=== PATIENT | female | born 1975 | race Caucasian/White ===

== ENCOUNTER → 2021-07-14 09:04 | Outpatient (CLI) | payer OTHER, SELFPAY ==
[2021-07-14 19:59] LABS: Free T4, Direct Thyroxine 0.72 ng/dL (0.78-2.19)
[2021-07-14 20:17] LABS: Free T3, Triiodothyronine Free 2.46 pg/mL (2.77-5.27)
[2021-07-19 01:02] LABS: Anti Thyroglobulin Antibody <1.0 IU/mL (0.0-0.9); Thyroid Peroxidase Antibodies <8 IU/mL (0-34)
== END ==
PROVIDERS: PCP Physician Assistant Medical; Visit Provider Physician Assistant Medical
DX: E03.9 Hypothyroidism, unspecified (principal); R10.2 Pelvic and perineal pain
CPT/HCPCS: 84439; 84443; 84481; 86376; 86800

== ENCOUNTER → 2021-09-27 08:23 | Outpatient (CLI) | payer OTHER, SELFPAY ==
[2021-09-27 20:34] LABS: COVID19 - ORCAS (NP or Nasal) Negative (Negative)
== END ==
PROVIDERS: PCP Physician Assistant Medical; Visit Provider Physician Assistant
DX: J06.9 Acute upper respiratory infection, unspecified (principal)
CPT/HCPCS: U0003

== ENCOUNTER 2021-09-28 14:10 | Emergency (ER) | payer OTHER, SELFPAY ==
[2021-09-28 14:13] VITALS: BP 109/70; PULSE 80; RESP 18; TEMP 36.3; O2SAT 100; BMI 22.0
[2021-09-28 14:48] LABS: Add Manual Diff / Slide Review NO; Basophils Absolute Auto 0 /uL (0-100); Basophils Percent Auto 0.5 % (0-2); Eosinophils Absolute Auto 0 /uL (0-450); Eosinophils Percent Auto 0.4 % (2-4); Hematocrit 39.1 % (36-46); Lymphocytes Absolute Auto 1800 /uL (1100-4500); Lymphocytes Percent Auto 25.4 % (25-40); Mean Corpuscular HGB Conc 35.8 % (30-36); Mean Corpuscular Hemoglobin 34.5 PG (26-34); Mean Corpuscular Volume 96.5 fL (80-100); Monocytes Absolute Auto 500 /uL (0-900); Monocytes Percent Auto 7.3 % (3-14); Neutrophils Absolute Auto 4600 /uL (1500-7000); Neutrophils Percent Auto 66.4 % (50-75); Platelet Count 243 X10^3/uL (150-400); Red Blood Cell Count 4.05 X10^6/uL (4.0-5.2); Red Cell Distribution Width 12.5 % (11.6-14.8)
[2021-09-28 15:00] LABS: Alanine Aminotransferase 15 IU/L (<35); Albumin 4.8 g/dL (3.5-5.0); Albumin Globulin Ratio 1.3 (1.0-2.8); Alkaline Phosphatase 47 U/L (38-126); Aspartate Aminotransferase 23 IU/L (14-36); BUN Creatinine Ratio 18.9 (6-22); Blood Urea Nitrogen 17 mg/dL (7-17); Carbon Dioxide 25 mmol/L (22-32); Chloride 103 mmol/L (98-107); Estimated Glomerular Filt Rate > 60 mL/min (>60); Globulin 3.6 g/dL (1.7-4.1); Glucose 92 mg/dL (70-100); HEMOLYSIS < 15 (0-50); Lipase 100 U/L (23-300); Potassium 3.9 mmol/L (3.4-5.1); Sodium 139 mmol/L (137-145); Total Protein 8.4 g/dL (6.3-8.2)
[2021-09-28 15:30] VITALS: BP 111/64; PULSE 59; RESP 18; O2SAT 99
[2021-09-28 16:00] VITALS: BP 111/68; PULSE 64; RESP 18; O2SAT 99
--- NOTE | 2021-09-28 16:10 | ED_ITS ---
HPI - Abdominal Pain General Chief Complaint: Abdominal Pain Stated Complaint: Right side back pain x 2 months. Now abd pain Time Seen by Provider: 09/28/21 15:33 Source: patient Mode of arrival: Ambulatory History of Present Illness HPI narrative: Patient is a 46-year-old female history of hypothyroid presenting with abdominal pain. She says that she actually has right flank pain ongoing for about a month. It is not radiating does not get better or worse not reproducible with pain. However this morning while on the toilet she had severe excruciating all across lower abdominal pain felt like she is going to have a bowel movement vomit all at the same time. She said it lasted for about 10 minutes and went away and has not recurred. She did not have any explosive diarrhea or vomiting. He is scheduled for an outpatient CT in a couple weeks but with the worsening abdominal pain wanted to be evaluated. Related Data Home Medications Medication Instructions Recorded Confirmed thyroid (pork) 300 mg tablet 300 mg PO TID tab 07/14/21 07/14/21 ([place] Thyroid) Previous Rx's Medication Instructions Recorded amoxicillin 500 mg capsule 500 mg PO TID #21 cap 09/04/21 Allergies Allergy/AdvReac Type Severity Reaction Status Date / Time No Known Drug Allergies Allergy Verified 09/04/21 15:16 Review of Systems Review of Systems Narrative: GENERAL: Denies chills, fatigue, malaise, fever, sweats, travel HEENT: Denies sinus pain, ear pain, sore throat, difficulty swallowing, neck pain RESPIRATORY: Denies dyspnea, cough, wheezing, hemoptysis, sputum. CARDIOVASCULAR: Denies chest pain, palpitations, orthopnea, edema GASTROINTESTINAL: See HPI : Denies dysuria, frequency, incontinence, hematuria, urinary retention, flank pain. MUSCULOSKELETAL: Denies weakness, joint pain, or bony pain SKIN: No rash, no erythema, no pruritus NEUROLOGIC: Denies weakness, dizziness, headache, numbness, change in speech, confusion PSYCHIATRIC: No concerning psychosocial issues. 12 point review of systems is negative except for those stated above and HPI Patient History Medical History Microscopic hematuria Sinusitis chronic, frontal Social History Smoking Status: Never smoker Smoking Status: Never smoker Substance Use Type: does not use Exam Initial Vital Signs Initial Vital Signs: Vital Signs Temperature 97.4 F L 09/28/21 14:13 Pulse Rate 80 09/28/21 14:13 Respiratory Rate 18 09/28/21 14:13 Blood Pressure 109/70 09/28/21 14:13 Pulse Oximetry 100 09/28/21 14:13 GENERAL: Alert well-appearing 46-year-old female in no acute distress. HEENT: Head atraumatic,EOMI, pupils reactive, face symmetric, moist mucous membranes CARDIOVASCULAR: Regular rate and rhythm without murmurs, rubs or gallops. RESPIRATORY: Breath sounds equal bilaterally, no wheezes rales or rhonchi. ABDOMEN: Soft, nontender. Normoactive bowel sounds all 4 quadrants. No guar ding or rebound. : Minimal right CVA tenderness EXTREMITIES: Normal range of motion, no clubbing or edema. Neurovascularly intact NEUROLOGICAL: Alert and oriented x4. SKIN: Warm, dry, no laceration, no petechiae, no rashes or lesions. Course Orders Ordered: ED Orders 09/28/21 14:28 Complete Blood Count AUTO DIFF Stat Comprehensive Metabolic Panel Stat Lipase Stat 09/28/21 16:18 CT abdomen pelvis w con Stat Vital Signs Vital signs: Vital Signs - 8 hr 09/28/21 14:13 09/28/21 15:30 09/28/21 16:00 Temperature 97.4 F L Pulse Rate 80 59 L 64 Respiratory Rate 18 18 18 Blood Pressure 109/70 111/64 111/68 Pulse Oximetry 100 99 99 09/28/21 16:37 09/28/21 17:00 Temperature Pulse Rate 59 L 70 Respiratory Rate 16 17 Blood Pressure 105/77 131/66 Pulse Oximetry 98 99 MDM - Abdominal Pain Lab Data Result diagrams: 09/28/21 14:28 09/28/21 14:28 Labs: Lab Results 09/28/21 09/28/21 Range/Units 14:28 14:28 WBC 7.0 (4.5-11.0) X10^3/uL RBC 4.05 (4.0-5.2) X10^6/uL Hgb 14.0 (12.0-16.0) g/dL Hct 39.1 (36-46) % MCV 96.5 (80-100) fL MCH 34.5 H (26-34) PG MCHC 35.8 (30-36) % RDW 12.5 (11.6-14.8) % Plt Count 243 (150-400) X10^3/uL Neut % (Auto) 66.4 (50-75) % Lymph % (Auto) 25.4 (25-40) % [place] % (Auto) 7.3 (3-14) % Eos % (Auto) 0.4 L (2-4) % Baso % (Auto) 0.5 (0-2) % Neut # (Auto) 4600 (4176-3679) /uL Lymph # (Auto) 1800 (4655-5940) /uL [place] # (Auto) 500 (0-900) /uL Eos # (Auto) 0 (0-450) /uL Baso # (Auto) 0 (0-100) /uL Sodium 139 (137-145) mmol/L Potassium 3.9 (3.4-5.1) mmol/L Chloride 103 (98-107) mmol/L Carbon Dioxide 25 (22-32) mmol/L BUN 17 (7-17) mg/dL Creatinine 0.90 (0.52-1.04) mg/dL Estimated GFR > 60 (>60) mL/min BUN/Creatinine Ratio 18.9 (6-22) Glucose 92 (70-100) mg/dL Calcium 9.0 (8.4-10.2) mg/dL Total Bilirubin 1.0 (0.2-1.3) mg/dL AST 23 (14-36) IU/L ALT 15 (<35) IU/L Alkaline Phosphatase 47 (38-126) U/L Total Protein 8.4 H (6.3-8.2) g/dL Albumin 4.8 (3.5-5.0) g/dL Globulin 3.6 (1.7-4.1) g/dL Albumin/Globulin Ratio 1.3 (1.0-2.8) Lipase 100 (23-300) U/L Point of care testing: Point of Care Testing Test Results Negative Urine Dip Bedside Urine Glucose Negative Bedside Urine Bilirubin - Negative Bedside Urine Ketone - Negative Urine Specific [place] 1.015 Bedside Urine Occult Blood - Negative Bedside Urine pH 6 Bedside Urine Protein - Negative Bedside Urine Urobilinogen - Negative Bedside Urine Nitrite - Negative Bedside Urine Leukocytes - Negative Esterase Imaging Data CT scan - abdomen/pelvis: Radiologist's Impression: Signed Patient: Bertha Mena MR#: [id number] : 1975 Acct:[id number] Age/Sex: 46 / F Date of Service: 09/28/21 Loc: ED Accession Number: [id number] ?? Procedure: CT abdomen pelvis w con Ordering Provider: Tish Pryor D.O. PROCEDURE:? CT ABDOMEN PELVIS W CON ? INDICATIONS:? right flank pain, lower ab pain x5 months ? TECHNIQUE:? After the administration of intravenous contrast, axial sections acquired from the lung bases to the pubic symphysis.? Coronal and sagittal reformats were performed.? For radiation dose reduction, the following was used:? automated exposure control, adjustment of mA and/or kV according to patient size.? ? COMPARISON:? None. ? FINDINGS:? Image quality:? Excellent.? ? Lung bases:? Unremarkable. Heart:? No significant findings. ? ABDOMEN: Liver:? Unremarkable.? ? Gallbladder:? Unremarkable.? ? Biliary ducts:? Unremarkable.? ? Pancreas:? Unremarkable.? ? Spleen:? Unremarkable.? ? Adrenal Glands:? Unremarkable.? ? Kidneys and Ureters:? Unremarkable.? ? ? Stomach and Bowel:? Multiple nondistended fluid-filled small bowel loops are present.? Stomach, small bowel loops, and colon are otherwise unremarkable.? Normal appendix Peritoneum:? No abnormal intraperitoneal fluid.? No free air.? ? Ventral Wall: ? No hernias.? Abdominal Nodes:? No retroperitoneal or mesenteric adenopathy by size criteria.? Vessels:? Aorta and inferior vena cava are normal in size.? ? PELVIS: Pelvic Organs:? Unremarkable.? ? Bladder:? Unremarkable.? ? Pelvic Nodes: No enlarged lymph nodes.? Miscellaneous: No hernias are seen. ? ? ? Bones:? Unremarkable.? IMPRESSION:? 1. Findings suggestive of gastroenteritis. 2. Normal appendix.? ? ? Dictated by: Cris Nguyen M.D. on 09/28/2021 at 16:44 ? ? MDM Narrative Medical decision making narrative: The patient has had ongoing right flank pain for more than 1 month. Today she had intense lower abdominal pain without diarrhea or vomiting. CT concerning for gastroenteritis however this is not clinically correlate. Symptoms have completely resolved. Blood work is overall reassuring. No explanation for her chronic ongoing right flank pain recommend outpatient follow-up. Discharge Plan Departure Patient Disposition: Home Clinical Impression: Abdominal pain, Gastroenteritis Instructions: DI for Viral Gastroenteritis -- Adult, DI for Abdominal Pain- Adult Activity Restrictions/Additional Instructions: *You have been diagnosed with abdominal pain, gastroenteritis *What to do: At this time CT scan does show that you have possible viral infection however blood work is overall reassuring no cause of right flank pain. *Continue to take medications as directed *Follow up with your primary care provider in 2-3 days or call [phone] *Return to ER if you should have increasing pain persistent nausea, vomiting, fever or any new, worsening or concerning symptoms Prescriptions: No Action amoxicillin 500 mg capsule 500 mg PO TID Qty: 21 0RF [place] Thyroid 300 mg tablet 300 mg PO TID 0RF Referrals: Chelsea Gregg PA-C [Primary Care Provider] -
--- NOTE | 2021-09-28 16:18 | DI.CT.S_ITS ---
PROCEDURE: CT ABDOMEN PELVIS W CON INDICATIONS: right flank pain, lower ab pain x5 months TECHNIQUE: After the administration of intravenous contrast, axial sections acquired from the lung bases to the pubic symphysis. Coronal and sagittal reformats were performed. For radiation dose reduction, the following was used: automated exposure control, adjustment of mA and/or kV according to patient size. COMPARISON: None. FINDINGS: Image quality: Excellent. Lung bases: Unremarkable. Heart: No significant findings. ABDOMEN: Liver: Unremarkable. Gallbladder: Unremarkable. Biliary ducts: Unremarkable. Pancreas: Unremarkable. Spleen: Unremarkable. Adrenal Glands: Unremarkable. Kidneys and Ureters: Unremarkable. Stomach and Bowel: Multiple nondistended fluid-filled small bowel loops are present. Stomach, small bowel loops, and colon are otherwise unremarkable. Normal appendix Peritoneum: No abnormal intraperitoneal fluid. No free air. Ventral Wall: No hernias. Abdominal Nodes: No retroperitoneal or mesenteric adenopathy by size criteria. Vessels: Aorta and inferior vena cava are normal in size. PELVIS: Pelvic Organs: Unremarkable. Bladder: Unremarkable. Pelvic Nodes: No enlarged lymph nodes. Miscellaneous: No hernias are seen. Bones: Unremarkable. IMPRESSION: 1. Findings suggestive of gastroenteritis. 2. Normal appendix. Dictated by: Cris Nguyen M.D. on 09/28/2021 at 16:44 Approved by: Cris Nguyen M.D. on 09/28/2021 at 17:00
[2021-09-28 16:37] VITALS: BP 105/77; PULSE 59; RESP 16; O2SAT 98
[2021-09-28 17:00] VITALS: BP 131/66; PULSE 70; RESP 17; O2SAT 99
== END 2021-09-28 17:32 | disposition home or self-care (01) ==
PROVIDERS: Emergency Provider Emergency Medicine; PCP Physician Assistant Medical
DX: K52.9 Noninfective gastroenteritis and colitis, unspecified (principal); R10.9 Unspecified abdominal pain
CPT/HCPCS: 36415; 74177; 80053; 81003; 81025; 83690; 85025; 99284; Q9967

== ENCOUNTER → 2021-10-13 10:38 | Outpatient (CLI) | payer OTHER, SELFPAY ==
--- NOTE | 2021-10-13 10:39 | DI.MG.S_ITS ---
BILATERAL DIGITAL SCREENING MAMMOGRAM 3D/2D WITH CAD: 10/13/2021 CLINICAL: Routine screening. Comparison is made to exam dated: 04/07/2020 mammogram - outside. The tissue of both breasts is heterogeneously dense. This may lower the sensitivity of mammography. Current study was also evaluated with a Computer Aided Detection (CAD) system. No significant masses, calcifications, or other findings are seen in either breast. There has been no significant interval change. IMPRESSION: NEGATIVE There is no mammographic evidence of malignancy. A 1 year screening mammogram is recommended. This exam was interpreted at Station ID: [id number]. NOTE: For mammograms, a report in lay terms will be sent to the patient. Approximately 15% of breast malignancies will not be visualized mammographically. In the management of a palpable breast mass, a negative mammogram must not discourage biopsy of a clinically suspicious lesion. Electronically Signed By: Vinnie chamorro/[email or web address]:10/13/2021 13:18:10 letter sent: Normal Exam ACR BI-RADS Category 1: Negative [id number]
--- NOTE | 2021-10-13 10:39 | DI.US.S_ITS ---
PROCEDURE: US PELVIC COMPLETE INDICATIONS: R pelvic pain TECHNIQUE: Real-time scanning was performed of the pelvic organs, with image documentation. Additional endovaginal scanning was necessary due to incomplete visualization of the adnexal and endometrial structures by transabdominal scanning. COMPARISON: None. FINDINGS: Uterus: Uterus is anteverted and normal in size at 8.2 x 2.8 x 5.0 cm. The myometrium is homogeneous. The endometrium measures 7.9 mm combined thickness. Ovaries: The right ovary measures 3.2 x 1.7 x 2.9 cm. The left ovary measures 2.5 x 1.3 x 1.9 cm. Bilateral follicles are present the largest measuring 1.2 cm. Other: No pathologic free abdominal or pelvic fluid. IMPRESSION: Bilateral ovarian follicles. We strive to produce accurate, complete, and clear reports of imaging services. To assist us in improving patient care, this report was composed using standard report templates and voice recognition software. Therefore, it may contain abnormal punctuation, insertions and/or omissions. Occasional wrong-word or sound-alike substitutions may occur. Though we review the report and make efforts to correct it, we do recommend that the report be read carefully in proper context to recognize any text inaccuracies. Dictated by: Deysi Treadwell M.D. on 10/13/2021 at 17:01 Approved by: Deysi Treadwell M.D. on 10/13/2021 at 17:12
== END ==
PROVIDERS: PCP Physician Assistant Medical; Referring Provider Physician Assistant Medical; Visit Provider Physician Assistant Medical
DX: Z12.31 Encounter for screening mammogram for malignant neoplasm of breast (principal); R10.2 Pelvic and perineal pain
CPT/HCPCS: 76830; 76856; 77063; 77067

== ENCOUNTER → 2021-12-13 10:38 | Outpatient (CLI) | payer OTHER, SELFPAY ==
[2021-12-13 20:25] LABS: Add Manual Diff / Slide Review NO; Basophils Absolute Auto 0 /uL (0-100); Basophils Percent Auto 0.6 % (0-2); Eosinophils Absolute Auto 0 /uL (0-450); Eosinophils Percent Auto 0.9 % (2-4); Hematocrit 39.7 % (36-46); Hemoglobin 13.7 g/dL (12.0-16.0); Lymphocytes Absolute Auto 1100 /uL (1100-4500); Lymphocytes Percent Auto 20.3 % (25-40); Mean Corpuscular HGB Conc 34.5 % (30-36); Mean Corpuscular Hemoglobin 34.1 PG (26-34); Mean Corpuscular Volume 98.7 fL (80-100); Monocytes Absolute Auto 400 /uL (0-900); Monocytes Percent Auto 8.4 % (3-14); Neutrophils Absolute Auto 3600 /uL (1500-7000); Neutrophils Percent Auto 69.8 % (50-75); Platelet Count 245 X10^3/uL (150-400); Red Blood Cell Count 4.02 X10^6/uL (4.0-5.2); Red Cell Distribution Width 12.7 % (11.6-14.8); White Blood Cell Count 5.2 X10^3/uL (4.5-11.0)
[2021-12-13 20:31] LABS: Alanine Aminotransferase 16 IU/L (<35); Albumin 4.4 g/dL (3.5-5.0); Albumin Globulin Ratio 1.5 (1.0-2.8); Alkaline Phosphatase 50 U/L (38-126); Aspartate Aminotransferase 22 IU/L (14-36); BUN Creatinine Ratio 13.9 (6-22); Bilirubin Total 0.9 mg/dL (0.2-1.3); Blood Urea Nitrogen 11 mg/dL (7-17); Calcium 8.6 mg/dL (8.4-10.2); Carbon Dioxide 25 mmol/L (22-32); Chloride 102 mmol/L (98-107); Estimated Glomerular Filt Rate > 60 mL/min (>60); Glucose 96 mg/dL (70-100); HEMOLYSIS < 15 (0-50); Potassium 4.2 mmol/L (3.4-5.1); Sodium 138 mmol/L (137-145); Total Protein 7.4 g/dL (6.3-8.2)
[2021-12-13 20:46] LABS: Erythrocyte Sedimentation Rate 24 MM/HR (0-20)
[2021-12-13 21:01] LABS: TSH w/ Reflex to FT4 1.35 uIU/mL (0.47-4.68)
[2021-12-19 16:37] LABS: ANA Screen, IFA Negative (.)
== END ==
PROVIDERS: PCP Physician Assistant Medical; Visit Provider Family Medicine
DX: E03.9 Hypothyroidism, unspecified (principal); M25.50 Pain in unspecified joint; R31.29 Other microscopic hematuria
CPT/HCPCS: 80053; 84443; 85025; 85651; 86038

== ENCOUNTER → 2022-10-04 11:04 | Outpatient (CLI) | payer OTHER, SELFPAY ==
[2022-10-04 20:05] LABS: Add Manual Diff / Slide Review NO; Basophils Absolute Auto 0 /uL (0-100); Basophils Percent Auto 0.3 % (0-2); Eosinophils Absolute Auto 0 /uL (0-450); Eosinophils Percent Auto 0.3 % (2-4); Hematocrit 39.7 % (36-46); Hemoglobin 13.9 g/dL (12.0-16.0); Lymphocytes Absolute Auto 1300 /uL (1100-4500); Lymphocytes Percent Auto 19.9 % (25-40); Mean Corpuscular HGB Conc 34.9 % (30-36); Mean Corpuscular Hemoglobin 34.4 PG (26-34); Mean Corpuscular Volume 98.4 fL (80-100); Monocytes Absolute Auto 500 /uL (0-900); Neutrophils Absolute Auto 4600 /uL (1500-7000); Neutrophils Percent Auto 71.5 % (50-75); Platelet Count 261 X10^3/uL (150-400); Red Blood Cell Count 4.04 X10^6/uL (4.0-5.2); Red Cell Distribution Width 12.3 % (11.6-14.8); White Blood Cell Count 6.5 X10^3/uL (4.5-11.0)
[2022-10-04 20:31] LABS: Free T3, Triiodothyronine Free 4.82 pg/mL (2.77-5.27)
[2022-10-04 20:33] LABS: Alanine Aminotransferase 22 IU/L (<35); Albumin 4.7 g/dL (3.5-5.0); Albumin Globulin Ratio 1.5 (1.0-2.8); Alkaline Phosphatase 51 U/L (38-126); Aspartate Aminotransferase 25 IU/L (14-36); BUN Creatinine Ratio 13.8 (6-22); Blood Urea Nitrogen 13 mg/dL (7-17); Calcium 9.1 mg/dL (8.4-10.2); Carbon Dioxide 26 mmol/L (22-32); Chloride 100 mmol/L (98-107); Cholesterol 241 mg/dL (140-199); Estimated Glomerular Filt Rate > 60 mL/min (>60); Globulin 3.2 g/dL (1.7-4.1); Glucose 94 mg/dL (70-100); HDL Cholesterol 72 mg/dL (40-60); HEMOLYSIS < 15 (0-50); LDL Cholesterol Calculated 154 mg/dL (<100); Potassium 4.3 mmol/L (3.4-5.1); Sodium 137 mmol/L (137-145); Total Protein 7.9 g/dL (6.3-8.2); Triglycerides 73 mg/dL (35-150)
[2022-10-04 20:39] LABS: Follicle Stimulating Hormone 50.9 mIU/mL; Luteinizing Hormone 18.2 mIU/mL
[2022-10-04 20:45] LABS: TSH w/ Reflex to FT4 0.31 uIU/mL (0.47-4.68)
[2022-10-04 20:55] LABS: Estradiol, Total 36.4 pg/mL
[2022-10-04 21:09] LABS: Free T4, Direct Thyroxine 0.96 ng/dL (0.78-2.19)
[2022-10-24 09:02] LABS: % Free Progesterone 1.9 % (.); Free Progesterone 1.3 ng/dL (.); Progesterone, Serum 69 ng/dL (.)
== END ==
PROVIDERS: PCP Physician Assistant Medical; Visit Provider Physician Assistant Medical
DX: R10.2 Pelvic and perineal pain (principal)
CPT/HCPCS: 80053; 80061; 82670; 83001; 83002; 84144; 84439; 84443; 84481; 84999; 85025

== ENCOUNTER → 2025-05-12 10:51 | Outpatient (CLI) | payer OTHER, SELFPAY ==
--- NOTE | 2025-05-12 | DI.RAD.S_ITS ---
PROCEDURE: XR LUMBAR SPINE MIN 4V INDICATIONS: low back pain with radiculopathy TECHNIQUE: 5 views of the lumbar spine acquired, including flexion and extension views. COMPARISON: None. FINDINGS: Bones: 6 nonrib-bearing vertebrae are present. There is normal bony alignment. No acute vertebral body compression fractures. No suspicious bony lesions. Mild multilevel lumbar spondylitic changes. Soft tissues: Overlying bowel gas pattern is normal. No suspicious soft tissue calcifications. Flexion/extension: There is decreased range of motion, with preserved normal alignment. IMPRESSION: Lumbar spine without acute osseous abnormalities. Mild multilevel lumbar spondylosis . Decreased range of motion without evidence for instability. Dictated by: Vinnie Pickard M.D. on 05/12/2025 at 21:53 Approved by: Vinnie Pickard M.D. on 05/12/2025 at 21:54
== END ==
PROVIDERS: PCP Family Medicine; Referring Provider Family Medicine; Visit Provider Family Medicine
DX: M47.26 Other spondylosis with radiculopathy, lumbar region (principal); M47.27 Other spondylosis with radiculopathy, lumbosacral region; M54.50 Low back pain, unspecified
CPT/HCPCS: 72110